=== PATIENT | male | born 1985 | race Two or more races ===

== ENCOUNTER 2025-05-04 09:20 | Emergency (ER) | payer SELFPAY ==
[2025-05-04] MEDS: Ketorolac 60 MG/2 ML SDV IM ONE (10:09)
== END 2025-05-04 10:55 | disposition home or self-care (01) ==
LOC: JD.ED 09:20
DX: B02.9 Zoster without complications (principal)
CPT/HCPCS: 96372; 99283; J1171; J1885; 99284